=== PATIENT | female | born 1960 | race Caucasian/White ===

== ENCOUNTER 2024-03-31 16:00 | Outpatient (REF) | payer BC, SELFPAY ==
--- NOTE | 2024-03-31 10:30 | PAPFT_PTH ---
PATIENT: Sharon Hernandez [id number] AGE/SX: 63/F ROOM: RE03/31/[address]: Grisel Santana : 1960 BED: DIS: 03/31/2024 SPEC #: [id number] RECD: 03/31/24 18:13 STATUS: JANET REQ #: [id number] GWEN: 03/31/24 10:[address]: Grisel Santana DEPT: [facility] Cytology RECD BY: Deysi Bowen Tissues: 1 - CX/ENDOCX FOR PAP SMEARS Procedures: PAP THIN PREP/UVM Screening HPV DNA PROBE Comments: [id number] (HPV 16 & 18/45)
[2024-03-31 15:27] LABS: HCT 47.2 % (36.0-46.0); HGB 15.4 g/dL (11.2-15.7); MCH 32.2 pg (27.0-33.0); MCHC 32.6 % (32.0-36.0); MCV 99 fL (80-95); MPV 10.8 fL (8.0-11.0); Platelet Count 187 10^3/uL (130-400); RBC 4.79 10^6/uL (3.93-5.22); RDW 12.3 % (11.7-14.6); RDW-SD 45.1 fL
--- OUTSIDE RECORDS SUMMARY | 2024-03-31 16:02 | XMS_ITS | Encounter Summary ---
Author Organization [facility] Address [address] [place] [address] Care Team Providers Care Child Welfare Specialist Name Role Phone Pcp, No Unavailable Unavailable Iveth Moreno Primary Car e Provider Jaci MartinD Unavailable [phone] Encounter Details Date Type Department Care Team (Late st Contact Info) Description 08/13/2018 1:00 PM EDT Clinical Support MMP LORA PROC BAX [address] [place] [address] Jaci Martin AU.D [address] [place] [address] [address] [place] [address] Social History Tobacco Use Types Packs/Day Years Used Date Smoking Tobacco: Never Assessed Comments Unknown Sex and Gender Information Value Date Recorded Sex Assigned at Not on file Legal Sex Female 6:59 AM EST Gender Identity Not on file Sexual Orientation Not on file documented as of this encounter Progress Notes * Jaci Martin AU.D - 08/14/2018 9:20 AM EDT HEARING AID FOLLOW-UP History: Sharon Hernandez, a 58 y.o. female, was seen for a hearing aid adjustment; they were fit 8 weeks ago with new BTE devices AU and were trialing a Phonak Gary Select demo and Gary X lidar scientist. Hearing Aid(s): Hearing Aid(s): Phonak Damaris B90-UP Battery Size: 675 Dome/Earmold: Full shell Program: N/A Button: off Repair Warranty: 3 years L&D Warranty: 3 years Patient is picking up personal Gary select and lidar scientist; she is familiar with how the devices worktogether and is comfortable with care and maintenance. A new contract and BAKER treatment form were filled out and signed by and Sharon and a copy was provided today for her records. Patient has a $3,000 hearing aid benefit so the entire charge will be sent to her insurance company first, and Sharon is aware that she will be responsible for the remainder of the cost. Recommendations: Follow-up for BAKER checks as needed Audiologic re-evaluation in 1 year, or sooner should a change in hearing be suspected. It was a pleasure to be a part of Sharon???s hearing [facility]. Wilman Ricks, -[facility] Doctor of Audiology License #[id number] documented in this encounter Plan of Treatment Not on file documented as of this encounter Visit Diagnoses Diagnosis Sensorineural hearing loss (SNHL) of both ears- Primary documented in this encounter Care Teams Child Welfare Specialist Relationship Specialty Start Date End Date Pcp, No PCP - Generic [facility] PCP 09/06/16 Iveth Moreno FNP [address] [place], [place] [id number] PCP - General Family Medicine 01/25/18 Jaci Martin AU.D [address] [place] [address] Sheep And Wheat Farmer Audiology 04/04/18 documented as of this encounter
--- OUTSIDE RECORDS SUMMARY | 2024-03-31 16:02 | XMS_ITS | Clinical Summary ---
Author Organization [facility] Address [address] [place] [address] Care Team Providers Care Rodding Anode Worker Name Role Phone Pcp, No Unavailable Unavailable Iveth Moreno HYDROCRANE OPERATOR Primary Car e Provider Jaci Martin.D Unavailable [phone] Allergies Active Allergy Reactions Criticality Noted Date Comments Bactrim Anaphylaxis High 03/30/2012 Back loaded data 03/30/12 Social History Tobacco Use Types Packs/Day Years Used Date Smoking Tobacco: Never Assessed Comments Unknown Sex and Gender Information Value Date Recorded Sex Assigned at Not on file Legal Sex Female 6:59 AM EST Gender Identity Not on file Sexual Orientation Not on file Plan of Treatment Health Maintenance Due Date Last Done Comments Depression Screening 1971 HIV Screening with Documente d Verbal Consent 08/01/1974 Colonoscopy 08/01/1977 Colorectal Cancer Screening 08/01/1977 Hepatitis C Screening 08/01/1977 TDAP/TD Vaccine 18+ 08/01/1977 CT Colonography 1979 FIT 1979 Sigmoidoscopy 1979 Stool DNA 1979 Cervical Cancer Screening 08/01/1980 Breast Cancer Screening 08/01/1989 Lipid Screening 08/01/1994 Herpes Zoster Vaccine (1 of 2) 08/01/2009 COVID-19 Vaccine ( - 2023-2 5 season) 2023 Influenza Vaccine (#1) 2023 Pneumococcal: Peds (0-5y) OR At-Risk Patient (6-64y) Aged Out No longer eligib le based on patient's age to complete this topic Insurance [facility] Care Teams Rodding Anode Worker Relationship Specialty Start Date End Date Pcp, No PCP - Generic [facility] PCP 09/06/16 Iveth Moreno FNP [address] [place] [address] PCP - General Family Medicine 01/25/18 Jaci Martin AU.D [address] [place] [address] Accounting Consultant Audiology 04/04/18
--- OUTSIDE RECORDS SUMMARY | 2024-03-31 16:02 | XMS_ITS | Encounter Summary ---
Author Organization [facility] Address [address] [place] [address] Care Team Providers Care Electrical/Instrument Technician Name Role Phone Pcp, No Unavailable Unavailable Reason for Referral * Radiology Services (Routine) - Closed Specialty Diagnoses / Procedures Referred By Michael rico Referred To Contact Radiology Diagnoses Sensory hearing loss, bilateral Procedures CT ORB SELLA POST OSMAR AND IAC WO CONTRAST Sohan Kilpatrick MD Phone: tel: fax: [facility] Radiology CT Scan [address] [address] Phone: tel: fax: Referral ID Status Reason Start Date Expiration Date Visits Re quested Visits Authorized Closed 08/30/2016 08/30/2017 1 1 Reason for Visit * Radiology Services (Routine) - Closed Specialty Diagnoses / Procedures Referred By Michael rico Referred To Contact Radiology Diagnoses Sensory hearing loss, bilateral Procedures CT ORB SELLA POST OSMAR AND IAC WO CONTRAST Sohan Kilpatrick MD Phone: tel: fax: [facility] Radiology CT Scan [address] [address] Phone: tel: fax: Referral ID Status Reason Start Date Expiration Date Visits Re quested Visits Authorized [id number] Closed 08/30/2016 08/30/2017 1 1 Encounter Details Date Type Department Care Team (Latest Contact Info) Description 09/08/2016 8:21 AM EDT - 09/08/2016 11:59 PM EDT Hospital Encounter [facility] Radiology CT Scan [place] [address] [place] [address] Sohan Kilpatrick MD [address] [place] [address] Dr [address] [place] [address] Discharge Disposition: Home or Self Care Social History Tobacco Use Types Packs/Day Years Used Date Smoking Tobacco: Never Assessed Comments Unknown Sex and Gender Information Value Date Recorded Sex Assigned at Not on file Legal Sex Female 6:59 AM EST Gender Identity Not on file Sexual Orientation Not on file documented as of this encounter Plan of Treatment Not on file documented as of this encounter Procedures Procedure Name Priority Date/Time Associated Diagnosis Comments CT ORB SELLA POST OSMAR AND IAC WO CONTRAST Routine 09/08/2016 8:38 AM EDT Sensory hearing loss, bilateral documented in this encounter Results * CT Orb Sella Post [place] and IAC WO Contrast (09/08/2016 8:38 AM EDT) Anatomical Region Laterality Modality Head Computed Tomogra phy 09/08/2016 8:30 AM EDT Narrative 09/08/2016 11:16 AM EDT EXAM: ??CT TEMPORAL BONE INDICATION: ??Bilateral sensory hearing loss. ??Pre-cochlear implant per the patient. COMPARISON: ??None. TECHNIQUE: ??Axial 0.625 mm images through the temporal bone without intravenous contrast. ??Sagittal and coronal reformats are obtained. FINDINGS: ??There is fluid identified in the right mastoid air cells. ??The left mastoids are clear. ??Both middle ear cavities are well aerated and normal, as are the tympanic membranes and ossicles. ??The inner ear structures have a normal symmetrical appearance. ??The internal auditory canals are symmetrical as well. IMPRESSION: ??Right mastoid effusion. ??There were no other significant findings. ?* * * THIS IS AN ELECTRONICALLY VERIFIED REPORT * * * 09/08/2016 11:13 AM: ??Johnie Stafford MD Procedure Note Johnie Stafford MD - 09/08/2016 EXAM: CT TEMPORAL BONE INDICATION: Bilateral sensory hearing loss. Pre-cochlear implant per thepatient. COMPARISON: None. TECHNIQUE: Axial 0.625 mm images through the temporal bone withoutintravenous contrast. Sagittal and coronal reformats are obtained. FINDINGS: There is fluid identified in the right mastoid air cells. Theleft mastoids are clear. Both middle ear cavities are well aerated andnormal, as are the tympanic membranes and ossicles. The inner earstructures have a normal symmetrical appearance. The internal auditory canals are symmetrical as well. IMPRESSION: Right mastoid effusion. There were no other significantfindings. * * * THIS IS AN ELECTRONICALLY VERIFIED REPORT * * * 09/08/2016 11:13 AM: Johnie Stafford MD Sohan Kilpatrick MD IMG CT ORDERABLES Final Resu lt documented in this encounter Visit Diagnoses Diagnosis Sensory hearing loss, bilateral documented in this encounter Care Teams Electrical/Instrument Technician Relationship Specialty Start Date End Date Pcp, No PCP - Generic [facility] PCP 09/06/16 documented as of this encounter
--- OUTSIDE RECORDS SUMMARY | 2024-03-31 16:02 | XMS_ITS | Encounter Summary ---
Author Organization [facility] Address [address] [place] [address] Care Team Providers Care Roller Printing Supervisor Name Role Phone Pcp, No Unavailable Unavailable Iveth Moreno Primary Car e Provider Jaci Martin Unavailable [phone] Reason for Visit * Consult, Test & Treat (Routine) - Closed Specialty Diagnoses / Procedures Referred By Contact Referred To Contact Audiology / Otolaryngology Diagnoses HE needed. Procedures RIS HEARING EVAL Iveth Moreno, DAVON [address] [place] [address] Phone: tel: fax: Jaci Martin AU.D [address] [place] [address] [address] [place] [address] Phone: tel: fax: Referral ID Status Reason Start Date Expiration Date Visits Re quested Visits Authorized [id number] Closed 03/19/2018 03/19/2019 12 12 Encounter Details Date Type Department Care Team (Late st Contact Info) Description 06/13/2018 1:00 PM EST Clinical Support MMP LORA PROC BAX [address] [place] [address] Jaci Martin AU.D [address] [place] [address] Dr [address] [place] [address] Social History Tobacco Use Types Packs/Day Years Used Date Smoking Tobacco: Never Assessed Comments Unknown Sex and Gender Information Value Date Recorded Sex Assigned at Not on file Legal Sex Female 6:59 AM EST Gender Identity Not on file Sexual Orientation Not on file documented as of this encounter Progress Notes * Jaci Martin AU.D - 06/13/2018 3:58 PM EST HEARING AID FITTING History: Sharon Hernandez, a 57 y.o. female, was seen for a hearing aid fitting. She has been using a pair of Loaner Phonak Damaris B70-UP hearing aids and is here today to exchange them for B90s to compare. With this order, we also purchased a ComPilot II to try our Gary select demo, but we could not get this tofunction today. Hearing Aid(s): Hearing Aid(s): Phoank Damaris B90-UP Battery Size: 675 Earmold(s)/Vent(s): Full Shell, no vent Program(s): AutoSense OS Button: Off Hearing aid(s) were programmed based on gain measurements from April as REM had already been performed on the 70 level devices. Sharon was happy with the overall sound quality and was able to pair the ComPilot to her phone today without incident. I will attempt to pair the Gary X director software development and Gary select devices to another hearing aid and reach out to our Phonak rep if I cannot get these devices to pair. Recommendations: Follow-up in 2 weeks, or sooner if problems arise. I will reach out to Sharon via [employer] to coordinate her next appointment after troubleshooting our demo equipment. documented in this encounter Plan of Treatment Not on file documented as of this encounter Visit Diagnoses Diagnosis Sensorineural hearing loss (SNHL) of both ears- Primary documented in this encounter Care Teams Roller Printing Supervisor Relationship Specialty Start Date End Date Pcp, No PCP - Generic [facility] PCP 09/06/16 Iveth Moreno FNP [address] [place] [address] PCP - General Family Medicine 01/25/18 Jaci Martin AU.D [address] [facility] [address] Weight Trainer Audiology 04/04/18 documented as of this encounter
--- OUTSIDE RECORDS SUMMARY | 2024-03-31 16:02 | XMS_ITS | Referral Summary ---
Author Organization [facility] Address [address] [place] [address] Care Team Providers Care Preforms Laminator Name Role Phone Pcp, No Unavailable Unavailable Iveth Moreno Primary Car e Provider Jaci Martin Unavailable [phone] Allergies Active Allergy Reactions Criticality Noted Date Comments Bactrim Anaphylaxis High 03/30/2012 Back loaded data 03/30/12 Social History Tobacco Use Types Packs/Day Years Used Date Smoking Tobacco: Never Assessed Comments Unknown Sex and Gender Information Value Date Recorded Sex Assigned at Not on file Legal Sex Female 6:59 AM EST Gender Identity Not on file Sexual Orientation Not on file Plan of Treatment Not on file Insurance [facility] Care Teams Preforms Laminator Relationship Specialty Start Date End Date Pcp, No PCP - Generic [facility] PCP 09/06/16 Iveth Moreno FNP [address] [place] [address] PCP - General Family Medicine 01/25/18 Jaci Martin AU.D [address] [place] [address] Co Chairman Audiology 04/04/18
--- OUTSIDE RECORDS SUMMARY | 2024-03-31 16:02 | XMS_ITS | Encounter Summary ---
Author Organization [facility] Address [address] [place] [address] Care Team Providers Care Analytics Senior Manager Name Role Phone Pcp, No Unavailable Unavailable Iveth Moreno Primary Car e Provider Reason for Visit * Reason Onset Date Comments Cancel Appointment 03/27/2018 Encounter Details Date Type Department Care Team (Late st Contact Info) Description 03/27/2018 Telephone MMP LORA PROC BAX [address] [place] [address] Jaci Martin AU.D [address] [place] [address] Cancel Appointment Social History Tobacco Use Types Packs/Day Years Used Date Smoking Tobacco: Never Assessed Comments Unknown Sex and Gender Information Value Date Recorded Sex Assigned at Not on file Legal Sex Female 6:59 AM EST Gender Identity Not on file Sexual Orientation Not on file documented as of this encounter Miscellaneous Notes * Telephone Encounter - Jaci Martin AU.D - 03/27/2018 2:01 PM EST Called today to confirm I could not fit Sharon with new hearing aids this week. Her devices were delayed by the firm administrator (in [place]) by severe weather and the holiday last and I will be out of the office tomorrow for family reasons. I advised that she call back to reschedule this appointment at her convenience. documented in this encounter Plan of Treatment Not on file documented as of this encounter Visit Diagnoses Not on filedocumented in this encounter Care Teams Analytics Senior Manager Relationship Specialty Start Date End Date Pcp, No PCP - Generic [facility] PCP 09/06/16 Iveth Moreno, DAVON [address] [place] [address] PCP - General Family Medicine 01/25/18 documented as of this encounter
--- OUTSIDE RECORDS SUMMARY | 2024-03-31 16:02 | XMS_ITS | Encounter Summary ---
Author Organization [facility] Address [address] [place] [address] Care Team Providers Care Group Leader Wafer Polishing Name Role Phone Pcp, No Unavailable Unavailable Iveth Moreno Primary Car e Provider Jaci Martin Unavailable [phone] Reason for Visit * Consult, Test & Treat (Routine) - Closed Specialty Diagnoses / Procedures Referred By Contact Referred To Contact Audiology / Otolaryngology Diagnoses HE needed. Procedures RIS HEARING EVAL Iveth Moreno, DAVON [address] [place] [address] Phone: tel: fax: Jaci Martin AU.D [address] [place] [address] [address] [place] [address] Phone: tel: fax: Referral ID Status Reason Start Date Expiration Date Visits Re quested Visits Authorized [id number] Closed 03/19/2018 03/19/2019 12 12 Encounter Details Date Type Department Care Team (Late st Contact Info) Description 04/11/2018 1:00 PM EST Clinical Support MMP LORA PROC BAX [address] [place] [address] Jaci Martin AU.D [address] [place] [address] Dr [address] [place] [address] Social History Tobacco Use Types Packs/Day Years Used Date Smoking Tobacco: Never Assessed Comments Unknown Sex and Gender Information Value Date Recorded Sex Assigned at Not on file Legal Sex Female 6:59 AM EST Gender Identity Not on file Sexual Orientation Not on file documented as of this encounter Progress Notes * Jaci Martin AU.D - 04/12/2018 11:49 AM EST HEARING AID FITTING History: Sharon Hernandez, a 57 y.o. female, was seen for a hearing aid fitting. History was remarkable for a profound hearing loss bilaterally. She is hear to demo some new Oticon hearing aids and compare them toPhonak devices. Sharon is considered a cochlear implant candidate in the left ear, but is not ready to move forward at this time. Hearing Aid(s): Hearing Aid(s): Oticon Dynamo SP8 Battery Size: 13 Earmold(s)/Vent(s): No Vent Program(s): Normal (NAL-NL1) Button: VC on Hearing aid(s) were programmed based on audiometric thresholds. Real Ear Measurement(s) were completed with hearing aid(s) estimating NAL-NL1. Ear mold(s) still fit well, no significant feedback noted. A copy of the hearing aid loaner agreement was signed today and Sharon understands she will be held financially responsible should she lose these hearing aids during the trial period. Recommendations: Return in 2 weeks to demo Phonak Damaris V70-UP hearing aids. Wilman Ricks, F-[facility] Doctor of Audiology License #[id number] documented in this encounter Plan of Treatment Not on file documented as of this encounter Visit Diagnoses Diagnosis Sensorineural hearing loss (SNHL) of both ears- Primary documented in this encounter Care Teams Group Leader Wafer Polishing Relationship Specialty Start Date End Date Pcp, No PCP - Generic [facility] PCP 09/06/16 Iveth Moreno FNP [address] [place] [address] PCP - General Family Medicine 01/25/18 Jaci Martin AU.D [address] [place] [address] Lather Apprentice Audiology 04/04/18 documented as of this encounter
--- OUTSIDE RECORDS SUMMARY | 2024-03-31 16:02 | XMS_ITS | Encounter Summary ---
Author Organization [facility] Address [address] [place] [address] Care Team Providers Care Office Engineer Name Role Phone DAVON Mathew Kelleryn Unavailable [phone] Encounter Details Date Type Department Care Team (Late st Contact Info) Description 03/12/2012 9:44 AM EST - 03/12/2012 11:59 AM EST Hospital Encounter [facility] OUTPATIENT Provider, Unknown Jeanie Diallo FNP [address] [place] [address] Discharge Disposition: Home or Self Care Social [...] Procedure Name Priority Date/Time Associated Diagnosis Comments RUBELLA AB IGG Routine 03/13/2012 12:00 PM EST RUBEOLA AB IGG Routine 03/13/2012 12:00 PM EST HEPATITIS B SURFACE AB Routine 03/13/2012 12:00 PM EST VARICELLA ZOSTER AB IGG Routine 03/13/2012 12:00 PM EST MUMPS AB IGG Routine 03/13/2012 12:00 PM EST documented in this encounter Results * Mumps Ab IgG (03/13/2012 12:00 PM EST) Mumps Ab IgG POSITIVE POSITIVE NORDX Comment: Positive for Mumps IgG, presumed immune to Mumps infection. 03/13/2012 12:0 0 PM EST 03/13/2012 12:08 PM EST Jeanie Diallo V, FLEET SERVICE MANAGER IMMUNOLOGY ORDERABLES Final Result Performing Organization Address [facility] Co de Phone Number NORDX [address] [place] [address] * Rubeola Ab IgG (03/13/2012 12:00 PM EST) Rubeola Ab IgG POSITIVE POSITIVE NORDX Comment: Positive for Measles IgG, presumed immune to Measles infection. 03/13/2012 12:0 0 PM EST 03/13/2012 12:08 PM EST Jeanie Diallo V, FLEET SERVICE MANAGER IMMUNOLOGY ORDERABLES Final Result Performing Organization Address [facility] Co de Phone Number NORDX [address] [place] [address] * Varicella Zoster Ab IgG (03/13/2012 12:00 PM EST) Varicella Zoster Ab IgG POSITIVE POSITIVE NORDX Comment: Positive for VZV IgG, presumed immune to VZV infection. 03/13/2012 12:0 0 PM EST 03/13/2012 12:08 PM EST [employer] V, FLEET SERVICE MANAGER IMMUNOLOGY ORDERABLES Final Result Performing Organization Address [facility] Co de Phone Number NORDX [address] [place] [address] * (ABNORMAL) Hepatitis B Surface Ab (03/13/2012 12:00 PM EST) Hepatitis Bs AB NEGATIVE(A ) POSITIVE NORDX Comment:Individual is consid ered not immune to HBV infection. 03/13/2012 12:0 0 PM EST 03/13/2012 12:08 PM EST DAVON Funk IMMUNOLOGY ORDERABLES Final Result Performing Organization Address [facility] de Phone Number NORDX [address] [place] [address] * Rubella Ab IgG (03/13/2012 12:00 PM EST) Rubella Ab IgG POSITIVE POSITIVE NORDX 03/13/2012 12:0 0 PM EST 03/13/2012 12:08 PM EST DAVON Funk IMMUNOLOGY ORDERABLES Final Result Performing Organization Address [facility] de Phone Number NORDX [address] [place] [address] documented in this encounter Visit Diagnoses Not on filedocumented in this encounter Care Teams Office Engineer Relationship Specialty Start Date End Date Jeanie Diallo FNP [address] [place] [address] PCP - Hospital (change to care team) 03/12/12 12/28/15 documented as of this encounter
--- OUTSIDE RECORDS SUMMARY | 2024-03-31 16:02 | XMS_ITS | Encounter Summary ---
Author Organization [facility] Address [address] [place] [address] Care Team Providers Care Lapidarist Name Role Phone Pcp, Omayra Unavailable Unavailable Iveth Moreno Primary Car e Provider Encounter Details Date Type Department Care Team (Late st Contact Info) Description 02/19/2018 [facility] [address] [place] [phone] Sohan Kilpatrick MD [address] [place] [address] Dr [address] [place] [id number] Social History Tobacco Use Types Packs/Day Years [...] on filedocumented in this encounter Care Teams Lapidarist Relationship Specialty Start Date End Date Pcp, No PCP - Generic [facility] PCP 09/06/16 Iveth Moreno FNP [address] [place] [address] PCP - General Family Medicine 01/25/18 documented as of this encounter
--- OUTSIDE RECORDS SUMMARY | 2024-03-31 16:02 | XMS_ITS | Encounter Summary ---
Author Organization [facility] Address [address] [place] [address] Care Team Providers Care Paper Bundler Name Role Phone Pcp, No Unavailable Unavailable Iveth Moreno Primary Car e Provider Jaci Martin Unavailable [phone] Reason for Visit * Consult, Test & Treat (Routine) - Closed Specialty Diagnoses / Procedures Referred By Contact Referred To Contact Audiology / Otolaryngology Diagnoses HE needed. Procedures RIS HEARING EVAL Iveth Moreno, DAVON [address] [place] [id number] Phone: tel: fax: Jaci Martin AU.D [address] [place] [address] [address] [place] [address] Phone: tel: fax: Referral ID Status Reason Start Date Expiration Date Visits Re quested Visits Authorized [id number] Closed 03/19/2018 03/19/2019 12 12 Encounter Details Date Type Department Care Team (Late st Contact Info) Description 05/29/2018 1:00 PM EST Clinical Support MMP LORA PROC BAX [address] [place] [id number] Jaci Martin AU.D [address] [place] [address] [address] [place] [address] Social History Tobacco Use Types Packs/Day Years Used Date Smoking Tobacco: Never Assessed Comments Unknown Sex and Gender Information Value Date Recorded Sex Assigned at Not on file Legal Sex Female 6:59 AM EST Gender Identity Not on file Sexual Orientation Not on file documented as of this encounter Progress Notes * Jaci Martin AU.D - 05/30/2018 2:33 PM EST Name: Sharon Hernandez : 1960 DOS: 05/30/18 Patient is being seen today for a hearing aid check and to demo ReSound Rj hearing aids. Action Taken: Both hearing aids were attached to Sharon's existing molds and connected to the fitting software. Preferences were set to experienced, digital with NAL-NL1 fitting algorithm. Attempts were made to adjust the overall gain using the VeraFit2 system, however speech targets could not be approximated in either ear without patient feeling the hearing aids were uncomfortably loud. I was unable to adjust them further, so Sharon elected to take back the Phonak Demo Damaris V70 devices she has been using forthe last several weeks. We have come to the conclusion that the Phonaks work better for her; we will return the Oticon Dynamo demos and ReSound Rj demos. Sharon would like to see if the B90 level Naidas make a difference for her, so these will be ordered along with a ComPilot. We will need to explore her insurance benefit to see exactly how much these will be covered, and if they would accept hearing aid accessory codes as well. Plan: I will contact Sharon when the new Damaris demos arrive. The B70 level devices will be returned after our next visit. Our Phonak rep is also sending a long a Gary Select and Gary X ged teacher for Sharon to try before purchasing. Wilman Ricks, F-[employer] Doctor of Audiology License #[id number] documented in this encounter Plan of Treatment Not on file documented as of this encounter Visit Diagnoses Diagnosis Sensorineural hearing loss (SNHL) of both ears- Primary documented in this encounter Care Teams Paper Bundler Relationship Specialty Start Date End Date Pcp, No PCP - Generic [facility] PCP 09/06/16 Iveth Moreno, DAVON [address] [place] [address] PCP - General Family Medicine 01/25/18 Jaci Martin AU.D [address] [place] [address] Asw Specialist Audiology 04/04/18 documented as of this encounter
--- OUTSIDE RECORDS SUMMARY | 2024-03-31 16:02 | XMS_ITS | Encounter Summary ---
Author Organization [facility] Address [address] [place] [address] Care Team Providers Care Cuff Slitter Name Role Phone Pcp, No Unavailable Unavailable Iveth Moreno Primary Car e Provider Jaci Martin Unavailable [phone] Reason for Visit * Reason Comments Hearing Aid Repair Encounter Details Date Type Department Care Team (Late st Contact Info) Description 06/30/2021 Clinical Update [facility] Ear Nose and Throat Care Procedure [address] [place] [address] Jaci Martin AU.D [address] [place] [address] [address] [place] [address] Social History Tobacco Use Types Packs/Day Years Used Date Smoking Tobacco: Never Assessed Comments Unknown Sex and Gender Information Value Date Recorded Sex Assigned at Not on file Legal Sex Female 6:59 AM EST Gender Identity Not on file Sexual Orientation Not on file documented as of this encounter Progress Notes * Jaci Martin AU.D - 06/30/2021 2:00 PM ESTSummary: Gary select repair Patient shipped Gary select into the office with a note stating it would not power on. The device is out of warranty and Leslye quoted a $139 repair with a 6 month warranty to fix the transmitter. This will be shipped to [facility] on the patient's behalf and then repaired device will be drop shipped via [employer] to patient's physical address (PO box listed as primary in chart) at [address] [place] [address]. Sharon will be contacted with plan moving forward. She is aware I will be leaving the practice but can reach out to any other audiologists should new issues arise. Wilman Ricks, F-[facility] Doctor of Audiology License #[id number] documented in this encounter Plan of Treatment Not on file documented as of this encounter Visit Diagnoses Diagnosis Sensorineural hearing loss (SNHL) of both ears documented in this encounter Care Teams Cuff Slitter Relationship Specialty Start Date End Date Pcp, No PCP - Generic [facility] PCP 09/06/16 Iveth Moreno FNP [address] [place], [place] [id number] PCP - General Family Medicine 01/25/18 Jaci Mratin AU.D [address] [place] [address] Leather Fitter Audiology 04/04/18 documented as of this encounter
[2024-03-31 16:03] LABS: BUN 16 mg/dL (7-18); CO2 29.6 mmol/L (21.0-32.0); CREATININE 0.8 mg/dL (0.55-1.02); Calcium 9.8 mg/dL (8.5-10.1); Chloride 105 mmol/L (98-107); Estimated GFR 82.23 (mL/min/1.73m2); Glucose 96 mg/dL (74-106); TSH (W/Ref FT4) 1.72 uIU/mL (0.36-3.74)
[2024-03-31 16:08] LABS: Anion Gap 7.4 mmol/L (3-11); Potassium 4.2 mmol/L (3.5-5.1); Sodium 142 mmol/L (136-145)
== END 2024-03-31 16:01 | disposition home or self-care (01) ==
LOC: NCHCN 16:00
PROVIDERS: PCP Family Medicine; Visit Provider Family Medicine
DX: Z11.51 Encounter for screening for human papillomavirus (HPV) (principal); Z01.419 Encounter for gynecological examination (general) (routine) without abnormal findings; R53.83 Other fatigue; Z86.39 Personal history of other endocrine, nutritional and metabolic disease
CPT/HCPCS: 80048; 85027; 88142; 84443; 87624

== ENCOUNTER 2024-12-16 16:35 | Outpatient (REF) | payer MEDICARE, SELFPAY ==
[2024-12-16 15:18] LABS: HCT 43.5 % (36.0-46.0); HGB 14.0 g/dL (11.2-15.7); MCH 30.9 pg (27.0-33.0); MCHC 32.2 % (32.0-36.0); MCV 96 fL (80-95); MPV 11.2 fL (8.0-11.0); Platelet Count 184 10^3/uL (130-400); RBC 4.53 10^6/uL (3.93-5.22); RDW 12.7 % (11.7-14.6); RDW-SD 44.9 fL; WBC 5.08 10^3/uL (4.4-10.8)
[2024-12-16 15:39] LABS: Hemoglobin A1C 5.5 % (<5.7)
[2024-12-16 15:48] LABS: ALT 95 U/L (14-59); AST 54 U/L (15-37); Albumin 4.2 g/dL (3.4-5.0); Alkaline Phosphatase 77 U/L (46-116); Anion Gap 8.9 mmol/L (3-11); BUN 13 mg/dL (7-18); Bilirubin, Total 1.3 mg/dL (0.2-1.0); CO2 29.1 mmol/L (21.0-32.0); Calcium 9.5 mg/dL (8.5-10.1); Calculated LDL 115 mg/dL (<100); Chloride 104 mmol/L (98-107); Cholesterol 221 mg/dL (<200); Estimated GFR 81.72 (mL/min/1.73m2); Glucose 111 mg/dL (74-106); HDL Cholesterol 85 mg/dL (>or=50); Potassium 4.5 mmol/L (3.5-5.1); Sodium 142 mmol/L (136-145); TSH 2.05 uIU/mL (0.36-3.74); Total Protein 7.6 g/dL (6.4-8.2); Triglyceride 105 mg/dL (<150)
== END 2024-12-16 16:36 | disposition home or self-care (01) ==
LOC: NCHCN 16:35
PROVIDERS: PCP Family Medicine; Visit Provider Nurse Practitioner Family
DX: R07.9 Chest pain, unspecified (principal); Z13.1 Encounter for screening for diabetes mellitus; E05.90 Thyrotoxicosis, unspecified without thyrotoxic crisis or storm
CPT/HCPCS: 80053; 80061; 85027; 83036; 84443

== ENCOUNTER 2025-04-08 10:57 | Outpatient (REF) | payer MEDICARE, SELFPAY ==
[2025-04-08 16:31] LABS: ALT 24 U/L (10-49); AST 37 U/L (<34); Albumin 4.7 g/dL (3.2-5.0); Alkaline Phosphatase 66 U/L (46-116); Anion Gap 6.5 mmol/L (3-11); BUN 16 mg/dL (9-23); Bilirubin, Total 1.2 mg/dL (0.2-1.2); CO2 32.5 mmol/L (20.0-31.0); Calcium 10.4 mg/dL (8.3-10.6); Chloride 104 mmol/L (98-107); Glucose 90 mg/dL (74-106); Potassium 4.8 mmol/L (3.5-5.1); Sodium 143 mmol/L (136-145); Total Protein 7.8 g/dL (5.7-8.2)
== END 2025-04-08 10:58 | disposition home or self-care (01) ==
LOC: NCHCN 10:57
PROVIDERS: PCP Family Medicine; Visit Provider Family Medicine
DX: R74.8 Abnormal levels of other serum enzymes (principal)
CPT/HCPCS: 80053